=== PATIENT | male | born 1990 | race Caucasian/White ===

== ENCOUNTER 2025-07-11 17:27 | Observation (INO) | payer OTHER ==
[~2025-07-11] VITALS: Ht 170.2 cm; Wt 86.7 kg
[2025-07-11] MEDS ORDERED: IBUP600T42 PO (17:42)
[2025-07-11] MEDS ORDERED: OXYC10TA12 PO (17:44)
[2025-07-11] MEDS ORDERED: ACET32TAB PO (17:44)
[2025-07-11 18:02] LABS: BASO # 0.1 10^3/uL (0.0-0.2); BASO % 0.4 % (0.0-1.0); EOS # 0.1 10^3/uL (0.0-0.5); EOS % 0.3 % (0.0-3.0); LYMPH # 1.9 10^3/uL (1.5-5.0); LYMPH % 11.7 % (24.0-44.0); MONO # 1.4 10^3/uL (0.0-0.8); MONO % 8.2 % (2.0-8.0); NEUTROPHILS # 13.0 10^3/uL (1.5-8.5); NEUTROPHILS % 79.0 % (36.0-66.0); PLATELET COUNT, AUTOMATED 281 10^3/uL (150-450)
[2025-07-11] MEDS ORDERED: ACET-683 PO (18:08)
[2025-07-11] MEDS ORDERED: IBUP1TAB7 PO (18:08)
[2025-07-11] MEDS ORDERED: HOME MED LIST COMPLETE! XX SCH (18:10)
[2025-07-11] MEDS: ceFAZolin SODIUM 2 GM in DEXTROSE 5% (D5W) ADV/MINI-BAG 50 ML IV ONE (18:30)
[2025-07-11 18:33] LABS: INR 0.99
[2025-07-11 18:34] LABS: CALCIUM LEVEL 8.8 MG/DL (8.5-10.1); CARBON DIOXIDE LEVEL 23 MMOL/L (20-31); CHLORIDE LEVEL 106 MMOL/L (98-107); CREATININE FOR GFR 1.05 MG/DL (0.70-1.30); GLOMERULAR FILTRATION RATE > 90.0 (>60); POTASSIUM SERUM 3.8 MMOL/L (3.5-5.1); SODIUM LEVEL 140 MMOL/L (136-145)
[2025-07-11] MEDS ORDERED: MIDAZOLAM INJ 2 MG/2 ML VIAL As Ordered ONE (19:02)
[2025-07-11] MEDS ORDERED: dexmedeTOMIDine (4 MCG/ML) 200 MCG/50 ML BTL As Ordered ONE (19:05)
[2025-07-11] MEDS ORDERED: ACETAMINOPHEN 1000MG/100ML IV BAG As Ordered ONE (19:05)
[2025-07-11] MEDS ORDERED: SUCCINYLCHOLINE 100MG/5ML SYRINGE As Ordered ONE (19:07)
[2025-07-11] MEDS ORDERED: dexAMETHasone 4 MG/ML 1 ML VIAL As Ordered ONE (19:08)
[2025-07-11] MEDS ORDERED: ONDANSETRON 4MG 2ML VIAL As Ordered ONE (19:08)
[2025-07-11] MEDS ORDERED: MORPHINE 4 MG/ML 1 ML VIAL IV PRN (19:20)
[2025-07-11] MEDS ORDERED: ACETAMINOPHEN *IV* 1,000 MG in IV 1 EA IV PRN (19:30)
[2025-07-11] MEDS ORDERED: PHENYLephrine 500MCG 5ML (100MCG/ML) SYRINGE As Ordered ONE (19:33)
[2025-07-11] MEDS ORDERED: DESFLURANE 240 ML INHALANT As Ordered ONE (20:24)
[2025-07-11 21:15] VITALS: BP 118/70; TEMP 98.2; O2SAT 93
[2025-07-11] MEDS: MORPHINE 4 MG/ML 1 ML VIAL IV PRN (21:40)
[2025-07-11] MEDS: NS (Normal Saline) 0.9% 1,000 ML IV SCH (21:44)
[2025-07-11 21:45] VITALS: BP 115/70; TEMP 98.4; O2SAT 95
[2025-07-11 22:00] VITALS: BP 115/70; TEMP 98.4; O2SAT 95
[2025-07-11 22:48] VITALS: BP 100/57; TEMP 97.7; O2SAT 93
[2025-07-12 00:11] VITALS: BP 88/56; TEMP 97.9; O2SAT 94
[2025-07-12 01:19] VITALS: BP 90/50; TEMP 97.9; O2SAT 97
[2025-07-12 02:22] VITALS: BP 91/50; TEMP 97.9; O2SAT 94
[2025-07-12 04:04] VITALS: BP 117/74; TEMP 98.1; O2SAT 93
[2025-07-12] MEDS: ceFAZolin SOD 1 GM in DEXTROSE 5% (D5W) ADV/MINI-BAG 50 ML IV SCH (04:34)
[2025-07-12 06:36] LABS: PLATELET COUNT, AUTOMATED 250 10^3/uL (150-450)
[2025-07-12 07:02] LABS: CALCIUM LEVEL 8.1 MG/DL (8.5-10.1); CARBON DIOXIDE LEVEL 26 MMOL/L (20-31); CHLORIDE LEVEL 106 MMOL/L (98-107); CREATININE FOR GFR 1.03 MG/DL (0.70-1.30); GLOMERULAR FILTRATION RATE > 90.0 (>60); POTASSIUM SERUM 4.3 MMOL/L (3.5-5.1); SODIUM LEVEL 142 MMOL/L (136-145)
== END 2025-07-12 12:13 | disposition home or self-care (01) ==
LOC: M ED 17:27 → M ED INP 17:28 → M MSPAV 21:14
PROVIDERS: ADMIT Student in an Organized Health Care Education/Training Program; ATTEND Student in an Organized Health Care Education/Training Program
DX: N99.840 Postprocedural hematoma of a genitourinary system organ or structure following a genitourinary system procedure (principal); I10 Essential (primary) hypertension; Z98.52 Vasectomy status
CPT/HCPCS: 36415; 54700; 80048; 85025; 85027; 85610; 86850; 86900; 86901; 96361; 96365; 96366; 96374; 99284; J0131; J0330; J0688; J0690; J1100; J2250; J2371; J2405; J3010

== ENCOUNTER → 2025-07-11 | Outpatient (REF) | payer OTHER ==
[~2025-07-11] MED LIST: ACET-683 PO; ACET32TAB PO; IBUP1TAB7 PO; IBUP600T42 PO; OXYC10TA12 PO
== END ==
LOC: M SMT 13:21
PROVIDERS: ATTEND Urology
DX: Z30.2 Encounter for sterilization (principal)